=== PATIENT | female | born 1940 | race Caucasian/White ===

== ENCOUNTER 2019-11-19 11:56 | Day surgery (SDC) | payer MEDICARE, MEDICAID, SELFPAY ==
[2019-11-19] VITALS (10 sets, daily range): BP systolic 116–163; BP diastolic 58–82; PULSE 66–90; RESP 14–21; TEMP 36.3–37; O2SAT 94–98; BMI 24.0
--- NOTE | 2019-11-19 | CT_ITS ---
EXAMINATION: CT HEAD WITHOUT CONTRAST CLINICAL INFORMATION: Prelumbar puncture. Rule out mass or hydrocephalus. COMPARISON: None TECHNIQUE: Contiguous axial imaging was performed from the skull base to vertex without intravenous administration of contrast. This CT examination was performed using dose optimization techniques as appropriate, variously including the following: *Automated exposure control *Adjustment of mA and/or kV according to patient size (this includes techniques or standardized protocols for targeted exams where dose is matched to indication/reason for exam; i.e. extremities or head) *Use of iterative reconstruction technique DLP: 711 mGy-cm FINDINGS: There is no evidence of an extra-axial collection. There is no evidence of intra or extra-axial hemorrhage. The ventricles and extra-axial CSF spaces are prominent suggestive of mild generalized atrophy. There is nonspecific periventricular white matter disease. No mass, mass effect or infarct is seen. Review at bone windows is normal. There is an air-fluid level in the right maxillary sinus suggestive of sinusitis. Visualized paranasal sinuses, mastoid air cells and middle ears are otherwise clear. IMPRESSION: No acute findings. Mild generalized atrophy and nonspecific periventricular white matter disease. Air-fluid level in the right maxillary sinus suggestive of right maxillary sinusitis.
--- NOTE | 2019-11-19 | FL_ITS ---
EXAMINATION: XR LUMBAR PUNCTURE CLINICAL INFORMATION: Left lower extremity and left upper extremity pain. 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 COMPARISON: None. TECHNIQUE: Procedure and risks and benefits including bleeding, infection and headache were discussed with the patient and informed consent was obtained. The patient was positioned in the prone position. The lower back was prepped and draped in the usual sterile fashion. Skin and soft tissues were anesthetized with 1% lidocaine plain. Using fluoroscopic guidance and a 22-gauge spinal needle, interlaminar access at the left L3-L4 level was obtained. 3 mL of slightly blood-tinged fluid was removed. Diagnostic specimen was sent. Opening pressure did not appear elevated. FINDINGS: There are degenerative changes of the spine. FLUOROSCOPY TIME: 1.1 minutes. DOSE AREA PRODUCT: 9.9 Gy-cm2. IMPRESSION: Fluoroscopy-guided lumbar puncture.
[2019-11-19 10:57] LABS: MANUAL DIFF FLAG NO
[2019-11-19 11:11] LABS: Prothrombin Time 11.4 SEC (10.8-13.0)
[2019-11-19 11:13] LABS: Partial Thromboplastin Time 30.7 SEC (24.1-38.0)
[2019-11-19 11:15] LABS: Basophils Absolute Auto 0.1 X10*3/uL (0.0-0.2); Basophils Percent Auto 0.8 % (0-2); Eosinophils Absolute Auto 0.2 X10*3/uL (0.0-0.4); Eosinophils Percent Auto 2.6 % (0-4); Hematocrit 28.1 % (37-47); Hemoglobin 8.3 g/dl (12.0-16.0); Imm Gran Abs Auto 0.02 X10*3/uL (0.00-0.03); Imm Gran Pct Auto 0.3 % (0.0-0.4); Lymphocytes Absolute Auto 1.3 X10*3/uL (1.2-4.9); Lymphocytes Percent Auto 20.9 % (20-40); Mean Corpuscular HGB Conc 29.5 g/dl (31.0-35.0); Mean Corpuscular Volume 74.5 fL (80-98); Mean Platelet Volume 9.2 fL (9.4-12.3); Monocytes Absolute Auto 0.6 X10*3/uL (0.1-1.2); Monocytes Percent Auto 9.8 % (2-11); Neutrophils Percent Auto 65.6 % (45-73); Platelet Count 412 X10*3/uL (160-400); Red Blood Count 3.77 X10*6/uL (4.20-5.50); Red Cell Distribution Width 15.4 % (11.0-16.0)
[2019-11-19 15:24] LABS: Appearance CSF BLOODY; CSF Tube # 2
[2019-11-19 15:52] LABS: Glucose CSF 55 mg/dL; Total Protein CSF 54.5 mg/dL (15-45)
[2019-11-19 16:11] LABS: Neutrophils CSF 100 %
[2019-11-19 16:12] LABS: Appearance CSF BLOODY; CSF Tube # 3
[2019-11-19 16:13] LABS: CSF Volume 0.5 ML; Color CSF PINK
[2019-11-19 16:14] LABS: Red Blood Cell CSF 6285 MM*3; White Blood Cell CSF 5 MM*3
[2019-11-21 10:54] LABS: Oligoclonal Serum Yes
[2019-11-25 23:11] LABS: Albumin 3.5 g/dL (3.2-4.6); IgG 752 mg/dL (600-1540)
== END 2019-11-19 23:59 ==
LOC: HO.SSS 11:57
PROVIDERS: Radiology Diagnostic Radiology; PCP Internal Medicine; Visit Provider Psychiatry & Neurology Neurology
PROC: 009U3ZZ Drainage of Spinal Canal, Percutaneous Approach (ICD-10-PCS; CPT 62270; principal; 2019-11-19 11:00)
DX: M54.16 Radiculopathy, lumbar region (principal); G03.9 Meningitis, unspecified; M12.88 Other specific arthropathies, not elsewhere classified, other specified site; M48.061 Spinal stenosis, lumbar region without neurogenic claudication; Z79.899 Other long term (current) drug therapy
CPT/HCPCS: 36415; 62328; 70450; 82042; 82945; 83916; 84157; 85025; 85610; 85730; 87015; 87070; 87205; 89051